=== PATIENT | female | born 1990 | race African-American/Black ===

== ENCOUNTER 2019-01-23 22:17 | Emergency (ER) | payer MEDICAID ==
[~2019-01-23] VITALS: Ht 172.7 cm; Wt 64.0 kg
[2019-01-23 22:36] VITALS: BP 110/61
== END 2019-01-23 23:19 | disposition home or self-care (01) ==
LOC: ED 23:13
DX: H66.002 Acute suppurative otitis media without spontaneous rupture of ear drum, left ear (principal)
CPT/HCPCS: 99283

== ENCOUNTER 2019-06-21 22:05 | Emergency (ER) | payer MEDICAID ==
[~2019-06-21] VITALS: Ht 172.7 cm; Wt 72.1 kg
[2019-06-21 22:10] VITALS: BP 122/79
== END 2019-06-21 23:15 | disposition home or self-care (01) ==
LOC: ED 23:09
DX: N99.89 Other postprocedural complications and disorders of genitourinary system (principal)
CPT/HCPCS: 99283

== ENCOUNTER 2019-10-02 21:15 | Emergency (ER) | payer MEDICAID ==
[~2019-10-02] VITALS: Ht 170.2 cm; Wt 67.4 kg
[~2019-10-02 21:15] MED LIST: BACI28.43 PO; OXYC5CAP2 PO
[2019-10-02 21:34] VITALS: BP 107/62
[2019-10-02] MEDS ORDERED: KETOROLAC 30 MG/1 ML IM ONE (23:30)
[2019-10-02] MEDS ORDERED: ACETAMINOPHEN 500 MG TABLET PO ONE (23:30)
[2019-10-02] MEDS ORDERED: KETOROLAC 30 MG/1 ML ONE (23:35)
[2019-10-02] MEDS ORDERED: ACETAMINOPHEN 500 MG TABLET ONE (23:36)
--- NOTE | 2019-10-02 23:47 | NUR ---
PT HERE FOR SUBSTERNAL CHEST PAIN WITH NO RADAITON THAT STARTED AFTER A BAD NIGHT OF SLEEP. PT REPORTS SHE IS UNABLE TO GET RELIEF. NO INTERVENTIONS AT HOME. PT REPORTS NO ADVIL OR TYLENOL PRIOR TO COMING. PT DENIES TRUAMA. PT DENIES SOB, N/V OR ANY OTHER SYMPTOMS. PT ON ALL MONITORS.
--- NOTE | 2019-10-02 23:48 | NUR ---
PT MEDICATED PER EMAR. Patient/Caregiver given discharge instructions and they have confirmed that they understand the instructions. Patient ambulatory with steady gait.
== END 2019-10-02 23:50 | disposition home or self-care (01) ==
LOC: ED 23:15
DX: R07.89 Other chest pain (principal); Z87.891 Personal history of nicotine dependence
CPT/HCPCS: 71045; 93005; 99283